=== PATIENT | male | born 1955 | race Caucasian/White ===

== ENCOUNTER 2016-09-20 13:53 | Emergency (ER) | payer OTHER ==
--- NOTE | 2016-09-20 14:50 | ED Physician Documentation ---
PD HPI UPPER EXT INJURY - Stated complaint Stated Complaint: R ARM INJURY - Chief complaint Chief Complaint: Ext Problem - History obtained from History obtained from: Patient - History of Present Illness Location: Right (FOOSH on R one week ago while camping and increasing pain R distal ulna) Review of Systems Constitutional: reports: Reviewed and negative Cardiac: reports: Reviewed and negative Respiratory: reports: Reviewed and negative PD PAST MEDICAL HISTORY - Past Medical History Cardiovascular: Hypertension Respiratory: Sleep apnea GI: GERD Musculoskeletal: Fibromyalgia - Past Surgical History Past Surgical History: Yes Ortho: Rotator cuff repair, Carpal Tunnel surgery - Present Medications Home Medications: Ambulatory Orders Medication Instructions Recorded Confirmed Esomeprazole Magnesium [Nexium] 40 mg PO BID 03/08/13 03/08/13 Lisinopril [Zestril] 20 mg PO DAILY 03/08/13 03/08/13 Ondansetron [Zofran Odt] 4 mg PO Q6-8H PRN #15 tab.rapdis 03/08/13 Pregabalin [Lyrica] 200 mg PO BID 03/08/13 03/08/13 Ranitidine HCl [Zantac 75] 150 mg PO BID 03/08/13 03/08/13 Terazosin [Hytrin] 10 mg PO QPM 03/08/13 03/08/13 Thyroid,Pork [[place] Thyroid] 15 mg PO DAILY 03/08/13 03/08/13 Tramadol HCl 50 mg PO Q6H 03/08/13 03/08/13 Trazodone HCl 100 mg PO HS 03/08/13 03/08/13 oxyCODONE/ACET 5/325 [Percocet 5 1 each PO Q4-6H PRN #10 tablet 03/08/13 mg/325 mg] HYDROcod/ACETAM 5/325 [[place] 5/325] 1 - 2 ea PO Q6H PRN #15 tablet 09/20/16 - Allergies Allergies/Adverse Reactions: Allergies Allergy/AdvReac Type Severity Reaction Status Date / Time ciprofloxacin [From Cipro] Allergy Rash Verified 03/08/13 09:07 ciprofloxacin HCl * Allergy Rash Verified 03/08/13 09:07 [From Cipro] - Social History Does the pt smoke?: No Smoking Status: Never smoker Does the pt drink ETOH?: Yes Does the pt have substance abuse?: No - POLST Patient has POLST: No PD ED PE NORMAL - Vitals Vital signs reviewed: Yes - General General: Alert and oriented X 3, No acute distress - Extremities Extremities: Other (Focally TTP distal ulnar prox to the wrist and diminished flex/ext. Elbow hand are NTTP and NVI.) - Neuro Neuro: Alert and oriented X 3, Normal speech - Psych Psych: Normal mood, Normal affect Results - Vitals Vitals: Vital Signs - 24 hr 09/20/16 14:01 Temperature 36.9 C Heart Rate 78 Respiratory 17 Rate Blood Pressure 132/63 H O2 Saturation 99 Oxygen O2 Source Room air - Rads (name of study) R wrist/FA Radiology: EMP read contemporaneously (no frx) Departure - Departure Disposition: 01 Home, Self Care Clinical Impression: Right wrist sprain Qualifiers: Encounter type: initial encounter Qualified Code(s): S63.501A - Unspecified sprain of right wrist, initial encounter Condition: Good Record reviewed to determine appropriate education?: Yes Instructions: ED Splint Care Velcro, ED Sprain Wrist Prescriptions: HYDROcod/ACETAM 5/325 [[place] 5/325] 1 - 2 ea PO Q6H PRN #15 tablet PRN Reason: Pain Comments: Recheck with your doctor in 1 week if not improved. Your blood pressure was elevated today on check into the emergency department. This does not mean that you have hypertension, it is a common phenomenon to come to the emergency department and have elevated blood pressure. I recommend that she see her primary care physician within the week to have it rechecked when you are feeling better. Do not drink or drive while taking narcotic pain medication. Note that many narcotic pain relievers also contain Tylenol/acetaminophen. Please ensure that your total dose of acetaminophen from all sources does not exceed 3 g (3000 mg) per day. You may get constipated while on this medication. Take a stool softener such as Colace twice a day while you are on it. Also add an [id number]-[id number] laxative such as senna or MiraLAX on any day that you do not have a bowel movement. If you received a narcotic pain medication or sedative while in the emergency department, do not drive for the next 24 hours.
--- NOTE | 2016-09-20 15:04 | XRAY Preliminary Report ---
Exam: XR Forearm RT IMPRESSION: Degenerative changes of the elbow. No evidence of a displaced fracture. [facility] SITE ID: [id number]
--- NOTE | 2016-09-20 15:07 | XRAY Report ---
EXAM: RIGHT FOREARM RADIOGRAPHY EXAM DATE: 09/20/2016 02:33 PM. CLINICAL HISTORY: Injury. COMPARISON: None. TECHNIQUE: 2 views. FINDINGS: Bones: Normal. No fractures or bone lesions. Joints: Degenerative changes of the elbow are noted. Soft Tissues: Normal. No soft tissue swelling. IMPRESSION: Degenerative changes of the elbow. No evidence of a displaced fracture. [facility] Referring Provider Line: [phone] SITE ID: [id number]
--- NOTE | 2016-09-20 15:07 | XRAY Preliminary Report ---
Exam: XR Wrist 4 View RT IMPRESSION: Normal wrist radiography. [facility] SITE ID: [id number]
--- NOTE | 2016-09-20 15:10 | XRAY Report ---
EXAM: RIGHT WRIST RADIOGRAPHY EXAM DATE: 09/20/2016 02:22 PM. CLINICAL HISTORY: Injury. COMPARISON: None. TECHNIQUE: 3 views. FINDINGS: Bones: Normal. No fractures or bone lesions. Joints: Normal. No subluxations. Soft Tissues: Normal. No soft tissue swelling. IMPRESSION: Normal wrist radiography. [facility] Referring Provider Line: [phone] SITE ID: [id number]
[2016-09-20 15:42] VITALS: BP 124/75
== END 2016-09-20 15:42 | disposition home or self-care (01) ==
LOC: ED 13:53
DX: S63.501A Unspecified sprain of right wrist, initial encounter (principal); W01.0XXA Fall on same level from slipping, tripping and stumbling without subsequent striking against object, initial encounter; Y92.833 Campsite as the place of occurrence of the external cause; I10 Essential (primary) hypertension; G47.30 Sleep apnea, unspecified; K21.9 Gastro-esophageal reflux disease without esophagitis; M79.7 Fibromyalgia
CPT/HCPCS: 99283

== ENCOUNTER 2017-03-19 11:21 | Day surgery (SDC) | payer OTHER ==
[2017-03-19] MEDS ORDERED: LACTATED RINGERS 1,000 ML IV ONE (11:28)
[2017-03-19] MEDS ORDERED: fentaNYL 100 MCG/2 ML VIAL IVP ONE (12:55)
[2017-03-19] MEDS ORDERED: MIDAZOLAM 2 MG/2 ML VIAL IVP ONE (12:55)
[2017-03-19 14:23] VITALS: BP 101/65
== END 2017-03-19 11:22 | disposition home or self-care (01) ==
LOC: SDS 11:21
PROVIDERS: ATTEND Internal Medicine
PROC: 0DJ08ZZ Inspection of Upper Intestinal Tract, Via Natural or Artificial Opening Endoscopic (ICD-10-PCS; principal; 2017-03-19 12:30)
DX: K21.9 Gastro-esophageal reflux disease without esophagitis (principal); K44.9 Diaphragmatic hernia without obstruction or gangrene
CPT/HCPCS: 43235; J7120

== ENCOUNTER 2021-11-05 19:50 | Outpatient (CLI) | payer MEDICARE, OTHER | END 2021-11-05 19:51 | disposition critical access hospital (66) | LOC: EMS 19:50 | DX: R07.89 Other chest pain (principal) | CPT/HCPCS: A0425; A0427 ==